=== PATIENT | female | born 1965 | race Caucasian/White ===

== ENCOUNTER 2017-07-06 08:38 | Emergency (ER) | payer OTHER ==
[2017-07-06] MEDS: IBUPROFEN 600 MG TAB PO (09:04)
== END 2017-07-06 11:43 | disposition home or self-care (01) ==
LOC: FTE 08:38
DX: S80.212A Abrasion, left knee, initial encounter (principal); S99.911A Unspecified injury of right ankle, initial encounter; S92.354A Nondisplaced fracture of fifth metatarsal bone, right foot, initial encounter for closed fracture; W01.0XXA Fall on same level from slipping, tripping and stumbling without subsequent striking against object, initial encounter; Y92.9 Unspecified place or not applicable
CPT/HCPCS: 29515; 73562; 73590; 73610-RT; 73630; 99284-25